=== PATIENT | male | born 1985 | race Caucasian/White ===

== ENCOUNTER 2020-02-05 13:13 | Emergency (ER) | payer OTHER ==
[~2020-02-05] VITALS: Ht 175.3 cm; Wt 97.5 kg
[2020-02-05] MEDS ORDERED: ACID REFLUX (13:21)
[2020-02-05] MEDS ORDERED: KEFLEX500 M1 PO (14:01)
[2020-02-05 14:18] VITALS: BP 121/75
== END 2020-02-05 14:19 | disposition home or self-care (01) ==
LOC: M.ERS 13:13
DX: S60.552A Superficial foreign body of left hand, initial encounter (principal); K21.9 Gastro-esophageal reflux disease without esophagitis; Z88.1 Allergy status to other antibiotic agents; W45.8XXA Other foreign body or object entering through skin, initial encounter; Y93.89 Activity, other specified; Y92.89 Other specified places as the place of occurrence of the external cause; Y99.8 Other external cause status